=== PATIENT | female | born 1980 | race Caucasian/White ===

== ENCOUNTER 2017-07-19 10:42 | Outpatient (CLI) | payer OTHER ==
--- NOTE | 2017-08-01 13:16 | Mammography Report ---
DIGITAL SCREENING MAMMOGRAM: 07/19/2017 CLINICAL INDICATION: A 37-year-old with family history of breast cancer (mother diagnosed at age 39), for screening. COMPARISON: The patient's previous films from [place], [place] are not yet available for direct comparison. If they become available, an addendum will be issued. TECHNIQUE: Routine CC and MLO projections were obtained of the breasts. Bilateral laterally exaggerated craniocaudal views. FINDINGS: The breasts demonstrate heterogeneously dense fibroglandular parenchyma bilaterally. Punctate, typically benign calcifications are present. No suspicious masses, clustered microcalcifications, or regions of architectural distortion are identified. IMPRESSION: BENIGN FINDINGS. RECOMMENDATION: ROUTINE ANNUAL SCREENING UNLESS OTHERWISE CLINICALLY INDICATED. BIRADS CATEGORY 2-BENIGN FINDINGS. STANDARD QUALIFYING STATEMENTS: 1. This examination was reviewed with the aid of Computer-Aided Detection (CAD). 2. A negative or benign imaging report should not delay biopsy if clinically suspicious findings are present. Consider surgical consultation if warranted. More than 5% of cancers are not identified by imaging. 3. Dense breasts may obscure an underlying neoplasm. TD: 08/01/2017 13:15
== END 2017-07-19 10:43 | disposition home or self-care (01) ==
LOC: DI 10:42
PROVIDERS: ATTEND Nurse Practitioner
DX: Z12.31 Encounter for screening mammogram for malignant neoplasm of breast (principal); Z80.3 Family history of malignant neoplasm of breast
CPT/HCPCS: 77067

== ENCOUNTER 2017-10-05 05:05 | Outpatient (CLI) | payer OTHER | END 2017-10-05 05:06 | disposition home or self-care (01) | LOC: EMS 05:05 | PROVIDERS: ATTEND Surgery | DX: F32.9 Major depressive disorder, single episode, unspecified (principal) | CPT/HCPCS: A0425; A0429 ==

== ENCOUNTER 2017-10-05 05:34 | Emergency (ER) | payer OTHER ==
[2017-10-05] MEDS ORDERED: ONDANSETRON ODT 4 MG TABLET TL STA (05:53)
--- NOTE | 2017-10-05 06:04 | ED Physician Documentation ---
PD HPI MHE - Stated complaint Stated Complaint: SI - Chief complaint Chief Complaint: MHE PD PAST MEDICAL HISTORY - Past Medical History Past Medical History: No - Past Surgical History Past Surgical History: No - Allergies Allergies/Adverse Reactions: Allergies Allergy/AdvReac Type Severity Reaction Status Date / Time No Known Drug Allergies Allergy Verified 10/05/17 05:55 - Social History Does the pt smoke?: No Smoking Status: Never smoker Does the pt drink ETOH?: Yes Does the pt have substance abuse?: No - Immunizations Immunizations are current?: Yes Results - Vitals Vitals: Vital Signs - 24 hr 10/05/17 05:33 Temperature 36.4 C L Heart Rate 91 Respiratory 16 Rate Blood Pressure 117/80 O2 Saturation 98 Oxygen O2 Source Room air
[2017-10-05] MEDS ORDERED: SODIUM CHLORIDE 0.9% 1,000 ML IV STA (06:22)
[2017-10-05] MEDS ORDERED: ONDANSETRON 4 MG/2 ML VIAL IVP STA (06:22)
[2017-10-05 07:03] LABS: BASOPHILS # (AUTO) 0.1 10^3/uL (0.0-0.1); BASOPHILS % (AUTO) 0.6 %; HGB - HEMOGLOBIN 13.3 g/dL (12.0-16.0); LYMPHOCYTES % (AUTO) 7.3 %; MEAN CORPUSCULAR HEMOGLOBIN 31.4 pg (27.0-31.0); MEAN CORPUSCULAR HGB CONC 34.1 g/dL (32.0-36.0); MEAN CORPUSCULAR VOLUME 92.2 fL (81.0-99.0); MEAN PLATELET VOLUME 8.9 fL (7.9-10.8); MONOCYTES # (AUTO) 0.4 10^3/uL (0.0-1.0); NEUTROPHILS # (AUTO) 11.7 10^3/uL (1.5-6.6); NEUTROPHILS % (AUTO) 89.1 %; PLT - PLATELET COUNT 290 10^3/uL (130-450); RED BLOOD COUNT 4.22 10^6/uL (4.20-5.40); RED CELL DISTRIBUTION WIDTH 13.2 % (12.0-15.0); WHITE BLOOD COUNT 13.1 x10^3/uL (4.8-10.8)
[2017-10-05 07:10] LABS: ALBUMIN 4.6 g/dL (3.2-5.5); ALBUMIN/GLOBULIN RATIO 1.3 (1.0-2.2); ALKALINE PHOSPHATASE 74 IU/L (42-121); ALT ALANINE AMINOTRANSFERASE 19 IU/L (10-60); AST ASPARTATE AMINOTRANSFERASE 26 IU/L (10-42); BILIRUBIN,TOTAL 0.7 mg/dL (0.2-1.0); BUN - BLOOD UREA NITROGEN 12 mg/dL (6-20); CALCIUM 9.1 mg/dL (8.5-10.3); CARBON DIOXIDE - CO2 22 mmol/L (21-32); CHLORIDE 101 mmol/L (101-111); CREATININE 0.5 mg/dL (0.4-1.0); GFR - MDRD 137 (>89); GLUCOSE 97 mg/dL (70-100); LIPASE 16 U/L (22-51); SODIUM 135 mmol/L (135-145); TOTAL PROTEIN 8.2 g/dL (6.7-8.2)
--- NOTE | 2017-10-05 08:39 | ED Physician Documentation ---
PD HPI NVD - Stated complaint Stated Complaint: ETOH, N/V; SI? - Chief complaint Chief Complaint: MHE - History obtained from History obtained from: Patient, EMS - History of Present Illness Timing - onset: Today Pain level max: 0 Pain level now: 0 Associated symptoms: No: Abdominal pain Improved by: Other (no ameliorating factors) Worsened by: Other (no exacerbating factors) Recently seen: Not recently seen - Additonal information Additional information: patient says there was an argument at home tonight amongst family members. she says she thought the best thing to do was to take a walk. she says she walked in the direction [place] and she was already walking back home when her mother located her and drove her back home. patient says she then went to bed but awoke to at bedside who then called for ambulance to bring patient to ED. patient does not know who called 911, but she says she realizes it was due to concern that she was walking towards the bridge and thus there was a concern for her safety. she strongly denies any suicidal thoughts or intent. she says she had been inpatient 2009 for mental health reasons. en route to ED she developed nausea and vomiting, and she vomits several times during H+P.she says this just started en route Review of Systems Cardiac: reports: Reviewed and negative Respiratory: reports: Reviewed and negative GI: reports: Nausea, Vomiting. denies: Abdominal Pain Psychiatric: reports: Reviewed and negative PD PAST MEDICAL HISTORY - Past Medical History Past Medical History: No - Past Surgical History Past Surgical History: No - Present Medications Home Medications: Ambulatory Orders Medication Instructions Recorded Confirmed Ondansetron Odt [Zofran] 4 mg TL Q6H PRN #14 tablet 10/05/17 - Allergies Allergies/Adverse Reactions: Allergies Allergy/AdvReac Type Severity Reaction Status Date / Time No Known Drug Allergies Allergy Verified 10/05/17 05:55 - Social History Does the pt smoke?: No Smoking Status: Never smoker Does the pt drink ETOH?: Yes Does the pt have substance abuse?: No - Immunizations Immunizations are current?: Yes PD ED PE NORMAL - Vitals Vital signs reviewed: Yes - General General: Alert and oriented X 3, No acute distress, Well developed/nourished - HEENT HEENT: Moist mucous membranes - Cardiac Cardiac: RRR, No murmur - Respiratory Respiratory: No respiratory distress - Abdomen Abdomen: Soft, Non tender - Neuro Neuro: Alert and oriented X 3 Eye Opening: Spontaneous Motor: Obeys Commands Verbal: Oriented GCS Score: 15 - Psych Psych: Normal mood, Normal affect Results - Vitals Vitals: Vital Signs - 24 hr 10/05/17 10/05/17 05:33 09:47 Temperature 36.4 C L 36.7 C Heart Rate 91 93 Respiratory 16 15 Rate Blood Pressure 117/80 120/80 O2 Saturation 98 100 Oxygen O2 Source Room air - Labs Labs: Laboratory Tests 10/05/17 10/05/17 06:35 06:35 WBC 13.1 H RBC 4.22 Hgb 13.3 Hct 38.9 MCV 92.2 MCH 31.4 H MCHC 34.1 RDW 13.2 Plt Count 290 MPV 8.9 Neut # 11.7 H Lymph # 1.0 L [place] # 0.4 Eos # 0.0 Baso # 0.1 Absolute Nucleated RBC 0.01 Nucleated RBC % 0.0 Sodium 135 Potassium 3.6 Chloride 101 Carbon Dioxide 22 Anion Gap 12.0 BUN 12 Creatinine 0.5 Estimated GFR (MDRD) 137 Glucose 97 Calcium 9.1 Total Bilirubin 0.7 AST 26 ALT 19 Alkaline Phosphatase 74 Total Protein 8.2 Albumin 4.6 Globulin 3.6 Albumin/Globulin Ratio 1.3 Lipase 16 L Ethyl Alcohol < 5.0 PD MEDICAL DECISION MAKING - ED course Complexity details: reviewed results, re-evaluated patient, considered differential, d/w patient ED course: calm, cooperative, pleasant during ED stay. she strongly and consistently denies SI. IV established and blood tested with IV fluids and zofran only because of frequent and persistent vomiting on arrival. on reevaluation, she is in NAD and reports resolution of nausea/vomiting. I offered SW consult but she again says she has no thought nor intent to self-harm and thus declines. Departure - Departure Disposition: 01 Home, Self Care Clinical Impression: Vomiting Qualifiers: Vomiting type: unspecified Vomiting Intractability: non-intractable Nausea presence: with nausea Qualified Code(s): R11.2 - Nausea with vomiting, unspecified Condition: Good Instructions: ED Nausea Vomiting Prescriptions: Ondansetron Odt [Zofran] 4 mg TL Q6H PRN #14 tablet PRN Reason: Nausea / Vomiting Discharge Date/Time: 10/05/17 09:55
[2017-10-05 09:48] VITALS: BP 120/80
== END 2017-10-05 09:55 | disposition home or self-care (01) ==
LOC: ED 05:34
DX: R11.2 Nausea with vomiting, unspecified (principal)
CPT/HCPCS: 80053; 80320; 83690; 85025; 96361; 96374; 99283; 99284; Q0162; 36415